=== PATIENT | male | born 1995 | race Hispanic/Latino ===

== ENCOUNTER 2023-08-30 12:12 | Emergency (ER) | payer SELFPAY ==
[2023-08-30 12:20] VITALS: BP 146/85
--- NOTE | 2023-08-30 13:26 | ED.MUSCINJ ---
HPI-Injury
General
Chief Complaint: Musculo-Skeletal Complaint
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
Exam Limitations: none
Time Seen by Provider: 08/30/23 13:01
Nursing documentation reviewed up to this point in time: agreed with
Travel History
Have you had any contact with someone who has COVID-19?: No
Do you have any symptoms of coronavirus? Fever > 100 degrees, chills, cough, shortness of breath, sore throat, loss of taste or smell, muscle aches, or headache?: No
History of Present Illness-Injury
Initial Injury comments:
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 He has been ambulating since, with increasing
pain and swelling of the foot.
Past History
Past History
ED Past Medical History: None
ED Past Surgical History: None
Social History
Tobacco: Non-smoker
Alcohol: None
Personal: Single
Employment: Employed (works on farm and in restaurant)
Review of Systems
Review of Systems
Allergies reviewed?: Yes
All Other Systems: ROS reviewed and negative except as documented in HPI and ROS
Musculoskeletal: Reports other (pain and swelling right foot)
Skin: Reports no symptoms
Phy Exam
Physical Exam
Physical Exam:
PHYSICAL EXAMINATION:
General: no apparent distress, not acutely ill
Neuro: alert and oriented.
Psychiatric: well kept. interactive and cooperative
Musculoskeletal: Moves with ease. Right foot dorsum moderately swollen, warm, tender mid dorsum. Distal neuro vascular intact.
Skin: Warm, normal
Injury Course
Orders/Labs/Results
Orders:
Orders
08/30/23 12:26
CR Foot - Right Min 3 Views Urgent
Comment:
Reason For Exam: foot injury
08/30/23 13:03
Ortho Boot Right- Treatment ONCE
Short or tall?: Short
MDM/Problems Addressed
MDM/Problems Addressed:
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 He has been ambulating since, with increasing
pain and swelling of the foot.
ambulating well after ortho boot applied
At his request, patient will be given a note for off work over the weekend, he is to wear the Ortho boot until follow-up with orthopedics
*Critical Care Note
Total Time (30-74mins, 75-104mins- exclusive of procedures): Not Applicable
ED Attending Note
-
Portions of this chart may have been created with voice recognition software.� Occasional wrong word or��sound alike� substitutions may have occurred due to the inherent limitations of voice recognition software.
Discharge Plan
Departure
Patient Disposition: Home (Routine Discharge)
Date of Disposition: 08/30/23
Time of Disposition: 13:28
Patient with high blood pressure during this ER visit?: Yes
Condition: Good
Discharge Problem:
Fracture of third metatarsal bone of right foot
Instructions: Walking Boot, Foot Fracture
Referrals:
Ramin Byrne MD [Active] - Call in 1-3 days for appt
NONE,* [Family Provider] -
Stand Alone Forms: Return to Work
Activity Restrictions/Additional Instructions:
As we discussed, wear the orthopedic boot until further instructed by the orthopedic doctor.
Tylenol or ibuprofen as needed for pain.
Rest over the weekend with the foot elevated to the level of your heart to reduce swelling.
Interventions
Interventions:
*General Assessment Last Done: 08/30/23 13:41
*ED COVID-19 Vaccine History Last Done: 08/30/23 12:20
*Nursing Disposition Last Done: 08/30/23 13:41
ED-Musculoskeletal Assessment Last Done: 08/30/23 12:40
Discharge Date and Time
Discharge Date/Time: 08/30/23 13:41
Print Language: [id number]
== END 2023-08-30 13:41 | disposition home or self-care (01) ==
LOC: EMR 12:12
PROVIDERS: EMERGENCY PHYSICIAN Emergency Medicine
DX: S92.331A Displaced fracture of third metatarsal bone, right foot, initial encounter for closed fracture (principal); W22.8XXA Striking against or struck by other objects, initial encounter
CPT/HCPCS: 99283; 73630